=== PATIENT | female | born 1970 | race Two or more races ===

== ENCOUNTER 2024-03-27 08:01 | Emergency (ER) | payer OTHER ==
[~2024-03-27] VITALS: Ht 170.2 cm; Wt 57.2 kg
[2024-03-27] MEDS ORDERED: SYNTHROID125 MCG PO (08:05)
[2024-03-27] MEDS ORDERED: KETOROLAC TROMETHAMINE 60 MG VIAL IM STA (08:41)
[2024-03-27] MEDS ORDERED: KETOROLAC TROMETHAMINE 60 MG VIAL IM ONE (08:50)
== END 2024-03-27 10:59 | disposition home or self-care (01) ==
LOC: ER 08:04
DX: M25.512 Pain in left shoulder (principal); E03.8 Other specified hypothyroidism